=== PATIENT | male | born 1975 | race Caucasian/White ===

== ENCOUNTER 2021-08-19 12:43 | Emergency (ER) | payer OTHER, SELFPAY ==
[2021-08-19 12:50] VITALS: BP 131/75; PULSE 74; RESP 16; TEMP 36.6; O2SAT 99
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
[2021-08-19 13:00] VITALS: BP 131/75; PULSE 74; RESP 16; TEMP 36.6; O2SAT 99
== END 2021-08-19 13:35 | disposition home or self-care (01) ==
PROVIDERS: Emergency Provider Nurse Practitioner; PCP Internal Medicine Infectious Disease
DX: T24.202A Burn of second degree of unspecified site of left lower limb, except ankle and foot, initial encounter (principal); T24.201A Burn of second degree of unspecified site of right lower limb, except ankle and foot, initial encounter; X08.8XXA Exposure to other specified smoke, fire and flames, initial encounter
CPT/HCPCS: 16030; 99203; A9270; G0463